=== PATIENT | female | born 1965 | race Caucasian/White ===

== ENCOUNTER 2016-07-30 20:30 | Emergency (ER) | payer SELFPAY ==
--- NOTE | 2016-07-30 21:23 | PDOC ---
Neck Pain / Injury HPI - General Chief Complaint: Neck / Back Complaint Stated Complaint: FALL WITH NECK PAIN Date Seen by Provider: 07/30/16 Time Seen by Provider: 21:15 - History of Present Illness Initial Comments: Patient is resting 51-year-old woman who presents to the emergency department complaining of neck pain. She states she's had multiple surgeries on her neck and she has pain there off and on but it is usually controlled. Unfortunately today she slipped on a stair ended up having a jarring effect to her neck and has had some substantial pain over the few hours previous to coming to the emergency department. When she entered the emergency department we placed a soft collar on her neck and she has no other concerning factors except for his neck pain. She has no numbness or tingling in her hands or feet no weakness in her arms upper body or lower extremities. - Patient Home Medications Home Medications: Home Medications Hydrocodone/Acetaminophen [Bay 5-325 Tablet] 2 tab PO Q6H PRN #10 tab - Patient Allergies Allergies/Adverse Reactions: Allergies Allergy/AdvReac Type Severity Reaction Status Date / Time aspirin Allergy Anaphylaxis Verified 07/30/16 20:46 carbamazepine [From Tegretol] Allergy Anaphylaxis Verified 07/30/16 20:46 ketorolac tromethamine Allergy SHORTNESS Verified 07/30/16 20:46 [From Toradol] OF BREATH Penicillins Allergy Anaphylaxis Verified 07/30/16 20:46 tramadol Allergy CHEST PAIN Verified 07/30/16 20:46 OR TIGHTNESS ROS - Limitations ROS Limitations: No Limitations Constitution: REPORTS: Denies Symptoms Cardiovascular: REPORTS: Denies Cardiac Symptoms Respiratory: REPORTS: Denies Resp Symptoms Neck Pain/Injury Exam - General Appearance General Appearance: REPORTS: Alert, Cooperative, No Acute Distress - HEENT HEENT: POSITIVE: Head Inspection Nml, Eyes Inspection Nml - Neck Neck: POSITIVE: Other (She is unwilling to turn her neck or bend or flex her neck because of discomfort. There is no obvious step-off lesions there is some tenderness with palpation in the paraspinous muscles in the neck nothing further down the spine. No neurologic symptoms are present at all.) Neck Pain/Injury Progress - Results Reviewed by me Xrays/CTs/US Reviewed by me: Yes Radiology Findings: No obvious new bony abnormality patient does have multilevel laminectomy and appears to be a fusion. - Patient's Progress MDM / ED Course: Patient still has neck pain but no neurologic deficit or sign of concerning injury. She is very adamant about having narcotic pain medication states she is allergic to Toradol and tramadol at a long discussion with her that this does look suspicious that she's coming in from out of town no CT evidence of worsening of her neck symptoms or no new findings and asking for narcotic pain medication. She insists that she does not overuse medications I will go ahead and give her enough tabs to get her through the next day and a half to where she can get into primary care or get back to her home town to see her regular doctor. I have strictly told her she may not drive while taking this medication. Patient Care Time - Estimated PCT Patient Care Time (In Minutes): 40 Vital Signs - VS Reviewed Vital Signs Reviewed: Yes (all reviewed and benign) Discharge Clinical Impression: Neck strain Qualifiers: Encounter type: initial encounter Qualifier Code: (S16.1XXA) Strain of muscle, fascia and tendon at neck level, initial encounter Discharge Disposition: Discharged to Home Condition: Stable Prescriptions / Orders: Hydrocodone/Acetaminophen [Bay 5-325 Tablet] 2 tab PO Q6H PRN #10 tab PRN Reason: Pain Patient Instructions Given at Discharge: Cervical Strain (ED) Additional Instructions: Follow-up with primary care provider as soon as possible preferably tomorrow for discussion about pain control and close monitoring. I will discharge to with a couple of Bay for tonight any further pain medication left be obtained through primary care To begin to have numbness tingling weakness or any other concerning symptoms do not hesitate to return Follow Up With: NONE,NONE [Primary Care Provider] -
--- NOTE | 2016-07-30 21:39 | DI ---
HISTORY: Fall TECHNIQUE: Unenhanced images of the cervical spine were obtained and submitted for interpretation. FINDINGS: There is loss of the normal cervical lordosis. There is prior laminectomy from C2-C7. Th ere is fusion of the C4-C7 vertebral bodies with anterior fixation. Well-corticated ossicles anterior to the vertebral bodies probably reflect degeneration, rather than avulsion fractures. There is no perched or jumped facet. There is mild prevertebral soft tissue thickening that is probably related to prior surgery. The mastoid air cells are relatively well-aerated. Limited sections of the lung apices demonstrate no pneumothorax. The craniocervical junction is inta ct. The thyroid gland is slightly heterogeneous. The dens is intact. The occipital condyles are intact. The atlantoaxial distance is not widened. T he lateral atlantodental distances are not widened. IMPRESSION: 1. Post-surgical changes without evidence of acute cervical spine fracture.
[2016-07-30] MEDS ORDERED: HYDROcodone-APAP 10 MG-325 MG TABLET PO ONE (21:48)
[2016-07-30] MEDS ORDERED: HYDROcodone-APAP 5 MG -325 MG TABLET PO SCH (22:00)
[2016-07-31 00:42] VITALS: RESP 22; TEMP 97
== END 2016-07-30 21:57 | disposition home or self-care (01) ==
LOC: ER 20:30
DX: S16.1XXA Strain of muscle, fascia and tendon at neck level, initial encounter (principal); W18.49XA Other slipping, tripping and stumbling without falling, initial encounter
CPT/HCPCS: 72125; 96372; 99283 ×2; J2360